=== PATIENT | female | born 1930 | race Caucasian/White ===

== ENCOUNTER → 2017-02-12 | Day surgery (SDC) | payer MEDICARE ==
[~2017-02-12] MED LIST: ASPIRIN81 MG PO; BYSTOLIC5 MG PO; FAMOTIDINE PO; FOLIC ACID PO; LORTAB 5-325 M1 EACH PO; ULORIC; ULORIC40 MG PO; VITAMIN B122500 MCG PO; VITAMIN B650 M1 PO
--- NOTE | ~2017-02-12 | OR ---
Unit #: [id number] #: [id number] Patient: ANDREIA HART [id number] [address] [address] [id number] O MR#: [id number] NAME: ANDREIA HART ROOM: Date of Procedure: 02/12/2017 Admission Date: 02/12/2017 Surgeon: Jose Daniel Sanchez M.D. : 1930 Attending Physician: Jose Daniel Sanchez M.D. Referring Physician: Jose Daniel Sanchez M.D. Primary Care Physician: Man You M.D. OPERATIVE REPORT PREOPERATIVE DIAGNOSES The patient had significant common bile duct stones that were removed by lithotripsy last time. She had a biliary stent in place and is status post cholecystectomy. She has come for elective removal of biliary stent. PROCEDURES PERFORMED 1. Endoscopic retrograde cholangiopancreatography and stent removal. 2. Endoscopic retrograde cholangiopancreatography and stone removal. POSTOPERATIVE DIAGNOSES 1. The patient had significant common bile duct stones that were removed by lithotripsy last time. She had a biliary stent in place and is status post cholecystectomy. She has come for elective removal of biliary stent. 2. The patient had multiple residual stones and debris in the common bile duct, which was dilated to about 13 mm. The sphincterotomy was extended and the common bile duct was completely cleared of all the stones and debris. 3. The patient had a periampullary diverticulum. RECOMMENDATIONS The patient will be followed up in the office in 3 to 4 months' time. SEDATION USED MAC. DESCRIPTION OF PROCEDURE Following detailed explanation of the potential risks and complications of an ERCP, namely perforation, bleeding, and complications related to sedation, and pancreatitis, the patient was brought to GI lab and laid in the left semiprone position. Sedation using MAC was given. A lateral viewing duodenoscope was advanced through the oral cavity into the esophagus and advanced into the stomach. Pylorus was intubated in the usual fashion. The scope was advanced in deep descending duodenum. Upon withdrawal and straightening this, the ampullary area was seen en face. The previously placed biliary stent was seen in normal position. The stent was removed using a polypectomy snare and delivered outside and the patient was reintubated. Through the previous sphincterotomy site, a guidewire was passed and common bile duct was cannulated. A contrast cholangiogram showed multiple filling defects in the distal half of the common bile duct. The sphincterotomy was then extended up to about 11 mm to 12 mm. We then used a 12 to 15 mm retrieval balloon and the duct was swept multiple times and cleaning it of any debris and stones, which were Unit #: [id number] #: [id number] Patient: ANDREIA HART delivered in the duodenum. Normal occlusion cholangiogram was demonstrated at the end of the procedure. The scope and the accessories were then withdrawn. The patient returned to the recovery area. She tolerated the procedure without any postprocedure complications. Dictated by... Shen Hagan/sil TD: 02/12/2017 22:24 JOB #: [id number] OPERATIVE REPORT Page 1 of 1 X Jose Daniel Sanchez MD X PROCEDURE OPERATIVE NOTE
--- NOTE | ~2017-02-12 | CR84 ---
[facility] A Service of [facility] & [facility] RADIOLOGY TEXT RESULTS PATIENT: ANDREIA HART LOCATION: [facility] : 32 UNIT #: [id number] AGE: [address]: Jose Daniel Sanchez MD SEX: F ORDER DR: [id number] [facility] [address] [place], [place] [address] [id number] O MR#: [id number] Acc #: [id number] NAME: ANDREIA HART : 1930 SEX: F STUDY DATE/TIME: 02/12/2017 7:38 UNIT: [facility] ROOM: STUDY DESCRIPTION: CR ERCP Biliary and Pancr SI Attending Physician: Jose Daniel Sanchez M.D. Referring Physician: Jose Daniel Sanchez M.D. Ordering Physician: Jose Daniel Sanchez M.D. Primary Care Physician: Man You M.D. MEDICAL IMAGING REPORT This report is preliminary unless electronic signature is present EXAM ERCP 02/12/2017 HISTORY Residual common bile duct stones. ERCP performed for stone removal. FINDINGS ERCP was performed by Dr. Sanchez. 4 spot film radiographs of the upper abdomen were obtained and 2 minutes 17 seconds of fluoroscopy time was utilized. The pancreatic duct was not injected. Surgical clips are seen in the right upper quadrant from prior cholecystectomy. Injection of the biliary tree shows dilatation of the common duct with multiple filling defects characteristic of stones within the duct. Sphincterotomy was performed. Balloon catheter was pulled retrograde through the common duct with a stone removal as per Dr. Sanchez. Dictated by... Benson Peters M.D. THIS IS AN ELECTRONICALLY VERIFIED REPORT Benson Peters M.D. at 02/15/2017 12:18 PM KRT/pcl TD: 02/12/2017 20:06 JOB #: [id number] MEDICAL IMAGING REPORT Page 1 of 1 COPY
== END | disposition home or self-care (01) ==
LOC: COPS 06:48
DX: Z46.59 Encounter for fitting and adjustment of other gastrointestinal appliance and device (principal); K80.50 Calculus of bile duct without cholangitis or cholecystitis without obstruction; K83.8 Other specified diseases of biliary tract; I48.91 Unspecified atrial fibrillation; N28.9 Disorder of kidney and ureter, unspecified; M19.90 Unspecified osteoarthritis, unspecified site; Z79.82 Long term (current) use of aspirin; Z79.899 Other long term (current) drug therapy; Z90.49 Acquired absence of other specified parts of digestive tract; Z90.710 Acquired absence of both cervix and uterus; Z90.721 Acquired absence of ovaries, unilateral; Z98.890 Other specified postprocedural states
CPT/HCPCS: 74330; J1610